=== PATIENT | male | born 1975 ===

== ENCOUNTER 2023-01-14 17:22 | Emergency (ER) | payer MEDICAID ==
[~2023-01-14] VITALS: Ht 170.2 cm; Wt 63.6 kg
[2023-01-14 17:22] VITALS: BP 130/76
== END 2023-01-14 18:38 | disposition left against medical advice (07) ==
LOC: EMS 17:26
DX: S61.210A Laceration without foreign body of right index finger without damage to nail, initial encounter (principal); Z53.21 Procedure and treatment not carried out due to patient leaving prior to being seen by health care provider; W26.8XXA Contact with other sharp object(s), not elsewhere classified, initial encounter; Y93.89 Activity, other specified; Y92.89 Other specified places as the place of occurrence of the external cause; Y99.8 Other external cause status
CPT/HCPCS: 99281; Z7502